=== PATIENT | female | born 1995 | race Hispanic/Latino ===

== ENCOUNTER 2020-02-11 13:24 | Emergency (ER) | payer OTHER ==
[~2020-02-11] VITALS: Ht 147.3 cm; Wt 90.7 kg
[2020-02-11] MEDS: CLINDAMYCIN PHOS 600 MG/ 4 ML VIAL IM ONE (14:06)
[2020-02-11] MEDS: KETOROLAC TROMETHAMINE 60 MG/2 ML VIAL IM ONE (14:06)
[2020-02-11] MEDS ORDERED: DOXYCYCLINE HY100 MG PO (14:18)
[2020-02-11] MEDS ORDERED: BACTRIM DS TAB1 EACH PO (14:18)
[2020-02-11] MEDS ORDERED: PREDNISONE20 MG PO (14:18)
--- NOTE | 2020-02-11 14:19 | Emergency Department Note ---
History of Present Illnes History of Present Illness Chief Complaint: painful rash rgt inner breast History of Present Illness This is a 25 year old female. was doing well prior to this. 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 Onset (how long ago): day(s) (2) Location: rgt breat Quality: sharp Radiation: Reports non-radiation Severity: mild Onset quality: gradual Duration (how long): day(s) (2) Timing of current episode: constant Progression: worsening Chronicity: recurrent Context: Denies recent illness, Denies recent surgery, Denies recent immobilization, Denies recent travel, Denies trauma/injury, Denies new medications, Denies hx of DVT/PE, Denies non-compliance w/ medications Relieving factors: none Exacerbating factors: movement Associated symptoms: Reports denies other symptoms Treatments prior to arrival: none Past Medical/Family History Physician Review I have reviewed the patient's past medical and family history. Any updates have been documented here. Past Medical History Recent Fever: No Clinical Suspicion of Infectio: No New/Unexplained Change in Ment: No Past Medical History: None Other Surgery: rt breast abscess surgically cleaned 2018 Social History Smoking Cessation: Never Smoker Counseling Performed: No Alcohol Use: None Any Illegal Drug Use: No Physically hurt or threatened: No Other Any Pre-Existing Lines (PICC,: No Review of Systems Review of Systems Constitutional: Reports no symptoms EENTM: Reports no symptoms Cardiovascular: Reports no symptoms Respiratory: Reports no symptoms Gastrointestinal: Reports no symptoms Genitourinary: Reports no symptoms Musculoskeletal: Reports no symptoms Integumentary: Reports as per HPI Neurological: Reports no symptoms Psychological: Reports no symptoms Endocrine: Reports no symptoms Hematological/Lymphatic: Reports no symptoms Review of other systems: All other systems negative Physical Exam Related Data Allergies: Coded Allergies: No Known Allergies (Unverified , 02/11/20) Triage Vital Signs Vital Signs Date Time Temp Pulse Resp B/P (MAP) Pulse Ox O2 Delivery O2 Flow Rate FiO2 02/11/20 13:38 98.8 94 14 120/79 100 Room Air Vital signs reviewed: Yes Physical Exam CONSTITUTIONAL Constitutional: Present well-developed, Present well-nourished HENT HENT: Present normocephalic, Present atraumatic, Present oropharynx clear/moist, Present nose normal HENT L/R: Present left ext ear normal, Present right ext ear normal EYES Eyes: Reports PERRL, Reports conjunctivae normal NECK Neck: Present ROM normal PULMONARY Pulmonary: Present effort normal, Present breath sounds normal CARDIOVASCULAR Cardiovascular: Present regular rhythm, Present heart sounds normal, Present capillary refill normal, Present normal rate GASTROINTESTINAL Abdominal: Present soft, Present nontender, Present bowel sounds normal GENITOURINARY Genitourinary: Present exam deferred SKIN Skin: Present warm, Present dry, Present erythema (3cm diameter medial rgt breast. no flucuence) MUSCULOSKELETAL Musculoskeletal: Present ROM normal NEUROLOGICAL Neurological: Present alert, Present oriented x 3, Present no gross motor or sensory deficits PSYCHOLOGICAL Psychological: Present mood/affect normal, Present judgement normal Assessment & Plan Medical Decision Making MDM cellulitis Assessment & Plan Final Impression: (1) Cellulitis Depart Disposition: HOME, SELF-CARE Last Vital Signs Date Time Temp Pulse Resp B/P (MAP) Pulse Ox O2 Delivery O2 Flow Rate FiO2 02/11/20 13:38 98.8 94 14 120/79 100 Room Air Home Meds Active Scripts Prednisone (PREDNISONE) 20 Mg Tab, 60 MG PO DAILY PRN for MODERATE PAIN (4-6), #12 TAB take all 3 20 mg pillat once Prov:REYNA CABALLERO 02/11/20 Doxycycline Hyclate (DOXYCYCLINE HYCLATE) 100 Mg Capsule, 100 MG PO Q12H, #20 CAP Prov:REYNA CABALLERO 02/11/20 Sulfamethoxazole/Trimethoprim (BACTRIM DS TABLET) 1 Each Tablet, 1 TAB PO Q12H, #20 TAB Prov:REYNA CABALLERO 02/11/20 Medications in the ED Clindamycin Phosphate 600 mg ONCE ONCE IM Last administered on 02/11/20at 14:06; Admin Dose 600 MG; Start 02/11/20 at 14:30; Stop 02/11/20 at 14:31 Ketorolac Tromethamine 60 mg ONCE ONCE IM Last administered on 02/11/20at 14:06; Admin Dose 60 MG; Start 02/11/20 at 14:00; Stop 02/11/20 at 14:01; Status DC REYNA CABALLERO Feb 11, 2020 14:19
== END 2020-02-11 14:28 | disposition home or self-care (01) ==
LOC: FSED 13:40
DX: N61.0 Mastitis without abscess (principal)
CPT/HCPCS: 81025; 99283; J1885